=== PATIENT | male | born 2000 | race Caucasian/White ===

== ENCOUNTER 2023-07-19 18:33 | Emergency (ER) | payer OTHER ==
[~2023-07-19] VITALS: Ht 172.7 cm; Wt 64.4 kg
[2023-07-19] MEDS: ONDANSETRON 4MG 2ML VIAL IV ONE (19:03)
[2023-07-19] MEDS: fentaNYL 100 MCG/2 ML INJECTION IV ONE ×2 (19:04→21:01)
[2023-07-19] MEDS: NS 1,000 ML IV ONE (19:05)
[2023-07-19 19:07] LABS: HEMATOCRIT 40.7 % (42.0-52.0); HEMOGLOBIN 14.7 g/dl (13.5-17.5); MEAN CORPUSCULAR HEMOGLOBIN 32.1 pg (27.0-33.0); MEAN CORPUSCULAR HGB CONC 36.1 g/dl (32.0-36.5); MEAN CORPUSCULAR VOLUME 88.9 fl (80.0-96.0); PLATELET COUNT, AUTOMATED 288 10^3/uL (150-450); RED BLOOD COUNT 4.58 10^6/uL (4.30-6.10); WHITE BLOOD COUNT 9.9 10^3/uL (4.0-10.0)
[2023-07-19 19:29] LABS: LIPASE 24 U/L (12-53)
[2023-07-19 19:31] LABS: ALBUMIN 4.6 G/DL (3.2-5.2); ALKALINE PHOSPHATASE 107 U/L (46-116); ALT/SGPT 22 U/L (7.0-40); AST/SGOT 21 U/L (<34); BILIRUBIN,DIRECT 0.2 MG/DL (<0.4); BILIRUBIN,TOTAL 0.8 MG/DL (0.3-1.2); BLOOD UREA NITROGEN 12 MG/DL (9-23); CALCIUM LEVEL 10.1 MG/DL (8.5-10.1); CARBON DIOXIDE LEVEL 25 MMOL/L (20-31); CHLORIDE LEVEL 104 MMOL/L (98-107); CREATININE FOR GFR 0.92 MG/DL (0.70-1.30); GLOMERULAR FILTRATION RATE > 60.0 (>60); GLUCOSE, FASTING 85 MG/DL (60-100); SODIUM LEVEL 137 MMOL/L (136-145); TOTAL PROTEIN 7.7 G/DL (5.7-8.2)
[2023-07-19 19:40] LABS: ATYPICAL LYMPH 1 % (0-5); EOSINOPHILS 1 % (0-3); LYMPHOCYTES 41 % (16-44); MONOCYTES 1 % (0-5); NEUTROPHILS 56 % (28-66); PLATELET ESTIMATE NORMAL (NORMAL)
[2023-07-19] MEDS: GASTROGRAFIN SOLUTION 30ML PO SCH (19:57)
[2023-07-19] MEDS ORDERED: ISOVUE-370 76% 100ML VIAL As Ordered ONE (20:45)
[2023-07-19] MEDS: PANTOPRAZOLE 40MG VIAL IV ONE (21:02)
[2023-07-19] MEDS ORDERED: PROT1TAB2 PO (22:32)
[2023-07-19 22:35] LABS: C REACTIVE PROTEIN QUANTITATIV < 0.40 MG/DL (<1.0)
[2023-07-19 22:50] VITALS: BP 141/72; TEMP 97.4; O2SAT 99
[2023-07-19 22:54] LABS: ERYTHROCYTE SEDIMENTATION RATE 5 mm/hr (0-15)
== END 2023-07-19 23:04 | disposition home or self-care (01) ==
LOC: M ED 18:33
DX: R10.9 Unspecified abdominal pain (principal); R19.7 Diarrhea, unspecified; Z88.5 Allergy status to narcotic agent
CPT/HCPCS: 74177; 80048; 80076; 83690; 85025; 85652; 86140; 96374; 96375; 96376; 99284; C9113; J2405; J3010; Q9963; Q9967